=== PATIENT | female | born 1995 | race Caucasian/White ===

== ENCOUNTER 2017-02-22 11:03 | Emergency (ER) | payer OTHER ==
[2017-02-22 12:05] LABS: Hematocrit 40 % (35-47); Hemoglobin 13.5 g/dl (12.0-16.0); Mean Corpuscular HGB Conc 34 g/dl (31-36); Mean Corpuscular Hemoglobin 32 pg (27-31); Mean Corpuscular Volume 94 fL (80-97); Mean Platelet Volume 7 um3 (7.4-10.4); Red Blood Count 4.21 10^6/ul (4.0-5.4); Red Cell Distribution Width 13 % (10.5-15)
[2017-02-22] MEDS ORDERED: ceFAZolin 1 GM VIAL(*) 1 GM in NS 0.9% 50 ML* 50 ML IVPB ONE (12:06)
[2017-02-22] MEDS ORDERED: ceFAZolin 1 GM VIAL(*) ONE (12:16)
[2017-02-22] MEDS ORDERED: Tetan/Diph/Pertus SYR(Tdap)* 0.5 ML SYR(BOOSTRIX) use SYR IM ONE (13:12)
--- NOTE | 2017-02-22 14:10 | ED ---
Skin Complaint - HPI Summary HPI Summary: Patient is an otherwise healthy 21yo F who presents to the ED with CC of open lesion to the lateral side of the left foot with surrounding dusky erythema, warmth extending up to the ankle. She states she cut her foot while walking barefoot in [place]. She noticed prior to leaving a plane 2 days ago the lesion and surrounding erythema. Today worsening erythema, warmth and now with pain. She denies injury to the foot. She is ambulating, but with pain. Denies fevers , sweats or chills. She was sent here by [facility] who stated she had + enlarged inguinal LN. She has been feeling otherwise well. Denies other symptoms or complaints at this time. She has not been taking medication for relief. - History of Current Complaint Chief Complaint: EDExtremityLower Time Seen by Provider: 02/22/17 11:14 Stated Complaint: FOOT LACEATION Hx Obtained From: Patient Onset/Duration: Started Days Ago Skin Exposure Onset/Duration: Days Ago Timing: Constant Onset Severity: Mild Current Severity: Moderate Pain Intensity: 7 Pain Scale Used: 0-10 Numeric Skin Location: Discrete - left foot Character: Pain, Redness Aggravating Symptom(s): Touch Alleviating Symptom(s): Nothing Associated Signs & Symptoms: Rash, Bruising, Tenderness, Red Streaks Related History: Trauma - Allergy/Home Medications Allergies/Adverse Reactions: Allergies Allergy/AdvReac Type Severity Reaction Status Date / Time No Known Allergies Allergy Verified 07/23/15 08:05 PMH/Surg Hx/FS Hx/Imm Hx Previously Healthy: Yes - Immunization History Hx Pertussis Vaccination: No Immunizations Up to Date: Yes Infectious Disease History: No Infectious Disease History: Reports: Traveled Outside the [place] in Last 30 Days - [place] - Family History Known Family History: Positive: None - Social History Occupation: Student Lives: With Family Alcohol Use: Occasionally Hx Substance Use: No Substance Use Type: Reports: None Hx Tobacco Use: Yes Smoking Status (MU): Light Every Day Tobacco Smoker Review of Systems Constitutional: Negative Negative: Fever, Chills, Fatigue Eyes: Negative Cardiovascular: Negative Respiratory: Negative Genitourinary: Negative Positive: no symptoms reported, see HPI Positive: Arthralgia - left foot pain Positive: Other - erythema and warmth Neurological: Negative All Other Systems Reviewed And Are Negative: Yes Physical Exam Triage Information Reviewed: Yes Vital Signs On Initial Exam: Initial Vitals Temp Pulse Resp BP Pulse Ox 98.5 F 68 16 126/72 99 02/22/17 11:05 02/22/17 11:05 02/22/17 11:05 02/22/17 11:05 02/22/17 11:05 Vital Signs Reviewed: Yes Appearance: Positive: Well-Appearing, Well-Nourished Skin: Positive: Warm, Skin Color Reflects Adequate Perfusion, Erythema @ - left foot with lesion to the lateral side of the left foot measuring 3cm Head/Face: Positive: Normal Head/Face Inspection Eyes: Positive: EOMI, MICHA, Conjunctiva Clear Neck: Positive: Supple, No Lymphadenopathy Respiratory/Lung Sounds: Positive: Clear to Auscultation, Breath Sounds Present Cardiovascular: Positive: RRR, Pulses are Symmetrical in both Upper and Lower Extremities Musculoskeletal: Positive: Strength/ROM Intact, Pain @ - on palpation to the lateral left foot Neurological: Positive: Speech Normal Psychiatric: Positive: Normal - [place] Coma Scale Coma Scale Total: 15 Diagnostics - Vital Signs Vital Signs Temp Pulse Resp BP Pulse Ox 02/22/17 11:05 98.5 F 68 16 126/72 99 - Laboratory Lab Results: Lab Results 02/22/17 Range/Units 11:45 WBC 7.0 (3.5-10.8) 10^3/ul RBC 4.21 (4.0-5.4) 10^6/ul Hgb 13.5 (12.0-16.0) g/dl Hct 40 (35-47) % MCV 94 (80-97) fL MCH 32 H (27-31) pg MCHC 34 (31-36) g/dl RDW 13 (10.5-15) % Plt Count 211 (150-450) 10^3/ul MPV 7 L (7.4-10.4) um3 Neut % (Auto) 77.8 (38-83) % Lymph % (Auto) 12.7 L (25-47) % [place] % (Auto) 8.3 (1-9) % Eos % (Auto) 0.6 (0-6) % Baso % (Auto) 0.6 (0-2) % Absolute Neuts (auto) 5.4 (1.5-7.7) 10^3/ul Absolute Lymphs (auto) 0.9 L (1.0-4.8) 10^3/ul Absolute Monos (auto) 0.6 (0-0.8) 10^3/ul Absolute Eos (auto) 0 (0-0.6) 10^3/ul Absolute Basos (auto) 0 (0-0.2) 10^3/ul Absolute Nucleated RBC 0 10^3/ul Nucleated RBC % 0 Result Diagrams: 02/22/17 11:45 Lab Statement: Any lab studies that have been ordered have been reviewed, and results considered in the medical decision making process. Course/Dx - Course Course Of Treatment: Patient is evaluated for cellulitis with possible MRSA infection to the left lateral foot extending up to the ankle. Denies fevers, sweats or chills. CBC obtained and WNL. Cefazolin 1gm given in ED. Bactrim prescribed. IMPRESSION: SOFT TISSUE SWELLING, NO OSSEOUS ABNORMALITY IS SEEN. Patient is OK with discharge and plan. Note given for school. - Diagnoses Provider Diagnoses: Nausea & vomiting Discharge - Discharge Plan Condition: Stable Disposition: HOME Prescriptions: Sulfamethox/Trimethoprim DS* [Bactrim DS 800/160 TAB*] 1 tab PO BID #20 tab MDD 2 Patient Education Materials: Cellulitis (ED) Forms: *School Release [facility] - Additional Instructions: I have given you an antibiotic Please take at home antibiotics starting this evening This medication is twice per day for 10 days If you develop worsening redness, streaks of red around the wound, swelling, abnormal drainage or you develop a fever - you need to come back to the ED right away. Your blood counts were all within normal limits Follow up for a wound recheck in 2-3 days at [facility] or return to the ED
--- NOTE | 2017-02-22 14:51 | RAD ---
INDICATION: Cellulitis versus deep infection. TECHNIQUE: 3 views of the left foot were obtained. FINDINGS: There is diffuse soft tissue swelling. No significant focal osseous abnormality is seen. No erosive change or periosteal reaction is noted. Joint spaces appear maintained. IMPRESSION: SOFT TISSUE SWELLING, NO OSSEOUS ABNORMALITY IS SEEN.
[2017-02-22 15:14] VITALS: BP 119/78
== END 2017-02-22 15:23 | disposition home or self-care (01) ==
LOC: ED 11:03
DX: R11.2 Nausea with vomiting, unspecified (principal); R21 Rash and other nonspecific skin eruption; F17.210 Nicotine dependence, cigarettes, uncomplicated; M79.672 Pain in left foot
CPT/HCPCS: 36415; 84702; 85025; 90471; 99282; J0690